=== PATIENT | female | born 1985 | race Caucasian/White ===

== ENCOUNTER 2020-09-16 11:10 | Inpatient (IN) ==
[2020-09-16 13:53] LABS: Basophils % 0.5 % (0.0-0.8); Eosinophils % 0.5 % (0.00-10.9); Hematocrit 41.7 VOL% (35.7-47.0); Hemoglobin 13.8 GM/DL (12.0-16.0); Immature Granulocytes % 0.7 %; Immature Granulocytes Absolute 0.04 #; Lymphocytes # 1.8 10*3/uL (1.4-4.0); Lymphocytes % 32.3 % (21.3-54.2); Mean Corpuscular HGB Conc 33.1 GM/DL (32-36); Mean Platelet Volume 10.1 FL (9.6-12.0); Monocytes % 10.3 % (1.7-12.7); Neutrophils % 55.7 % (38.7-73.9); Platelet Count 331 T/CUMM (130-400); Red Blood Count 5.21 MC/CUMM (3.8-5.5); Red Cell Distribution Width 13.1 % (9.3-17.3); White Blood Count 5.6 T/CUMM (4-12)
[2020-09-16 14:13] LABS: Bilirubin,Urine Negative (Negative); Blood, Urine Small mg/dL (Negative); Glucose,Urine (UA) Negative (Negative); Hyaline Casts,Urine 1 /LPF (0-3); Ketones,Urine 80 mg/dL (Negative); Mucus,Urine Occasional /LPF (Occasional); Nitrite,Urine Negative (Negative); Protein,Urine Negative; RBC,Urine 1 /HPF (0-4); Squamous Epithelial Cell,Urine Occasional /HPF (0-10); Urine Appearance Slightly Hazy (Clear); Urine Color Yellow (Yellow); Urine Specific Gravity 1.016 (1.001-1.035); Urine Urobilinogen < 2.0 EU/DL (0.2-1.0); WBC,Urine 3 /HPF (0-6)
[2020-09-16 14:30] LABS: Albumin 3.1 G/DL (3.4-5.0); Bilirubin,Total 0.6 MG/DL (0.2-1.0); Calcium 9.3 MG/DL (8.5-10.1); Osmolality,Calculated 269.1 MOS/KG (273-304); Potassium 3.7 MMOL/L (3.5-5.1); Total Protein 8.2 G/DL (6.4-8.3)
[2020-09-16 14:42] LABS: Eosinophils 1 % (0-10); Lymphocytes 31 % (20-55); Platelet Estimate Adequate; Segmented Neutrophils 57 % (50-85); Total Cells Counted 100
[2020-09-16] MEDS ORDERED: cefTRIAXone 1,000 MG in SODIUM CHLORIDE 0.9% 100 ML IV STA (16:50)
[2020-09-16] MEDS ORDERED: AZITHROMYCIN INJ 500 MG in SODIUM CHLORIDE 0.9% 250 ML IV STA (16:50)
[2020-09-16] MEDS ORDERED: METOCLOPRAMIDE 10 MG/2 ML VIAL IV STA (16:50)
[2020-09-16] MEDS ORDERED: ONDANSETRON 4 MG/2 ML VIAL IV ONE (16:59)
[2020-09-16] MEDS: SODIUM CHLORIDE 0.9% 1,000 ML IV SCH (21:55)
[2020-09-16] MEDS: FAMOTIDINE 20 MG TABLET PO SCH (22:05)
[2020-09-16] MEDS: DOCUSATE SODIUM 100 MG CAPSULE PO SCH (22:06)
[2020-09-17] MEDS: ONDANSETRON 4 MG/2 ML VIAL IV PRN ×2 (00:40→18:36)
[2020-09-17] MEDS: SODIUM CHLORIDE 0.9% 1,000 ML IV SCH ×3 (05:11→20:32)
[2020-09-17 05:45] LABS: Basophils % 0.7 % (0.0-0.8); Eosinophils # 0.1 10*3/uL (0.0-0.87); Eosinophils % 1.6 % (0.00-10.9); Hematocrit 36.9 VOL% (35.7-47.0); Hemoglobin 12.3 GM/DL (12.0-16.0); Immature Granulocytes % 1.1 %; Immature Granulocytes Absolute 0.05 #; Lymphocytes # 1.9 10*3/uL (1.4-4.0); Mean Corpuscular HGB Conc 33.3 GM/DL (32-36); Mean Corpuscular Volume 80.4 FL (87-102); Monocytes % 11.3 % (1.7-12.7); Neutrophils % 41.3 % (38.7-73.9); Platelet Count 305 T/CUMM (130-400); Red Blood Count 4.59 MC/CUMM (3.8-5.5); Red Cell Distribution Width 13.1 % (9.3-17.3); White Blood Count 4.4 T/CUMM (4-12)
[2020-09-17 06:03] LABS: Albumin 2.6 G/DL (3.4-5.0); Bilirubin,Total 0.5 MG/DL (0.2-1.0); Calcium 8.5 MG/DL (8.5-10.1); Osmolality,Calculated 275.5 MOS/KG (273-304); Potassium 3.3 MMOL/L (3.5-5.1); Total Protein 6.9 G/DL (6.4-8.3)
[2020-09-17 06:14] LABS: Eosinophils 5 % (0-10); Hypochromasia 1+; Lymphocytes 47 % (20-55); Microcytosis 1+; Platelet Estimate Adequate; Segmented Neutrophils 41 % (50-85); Total Cells Counted 100
[2020-09-17] MEDS: FAMOTIDINE 20 MG TABLET PO SCH ×2 (08:08→20:31)
[2020-09-17] MEDS: DOCUSATE SODIUM 100 MG CAPSULE PO SCH (08:09)
[2020-09-17] MEDS: POTASSIUM CHLORIDE 20 MEQ TABLET PO PRN ×3 (10:54→15:10)
[2020-09-17] MEDS: cefTRIAXone 1,000 MG in SYRINGE 1 EACH IV SCH (17:56)
[2020-09-18] MEDS: DOCUSATE SODIUM 100 MG CAPSULE PO SCH ×3 (00:23→22:26)
[2020-09-18] MEDS: ACETAMINOPHEN 325 MG TABLET PO PRN (05:00)
[2020-09-18] MEDS: SODIUM CHLORIDE 0.9% 1,000 ML IV SCH ×2 (05:00→11:40)
[2020-09-18] MEDS: FAMOTIDINE 20 MG TABLET PO SCH ×2 (08:02→20:57)
[2020-09-18] MEDS: ONDANSETRON 4 MG/2 ML VIAL IV PRN ×2 (11:41→17:49)
[2020-09-18] MEDS: VANCOMYCIN INJ 1,500 MG in SODIUM CHLORIDE 0.9% 500 ML IV SCH (16:07)
[2020-09-18] MEDS: cefTRIAXone 1,000 MG in SYRINGE 1 EACH IV SCH (17:16)
[2020-09-18] MEDS: ALBUTEROL 2.5 MG/3 ML NEB RESP TX PRN (21:15)
[2020-09-19] MEDS: ONDANSETRON 4 MG/2 ML VIAL IV PRN ×3 (00:26→17:11)
[2020-09-19] MEDS: SODIUM CHLORIDE 0.9% 1,000 ML IV SCH ×4 (02:30→20:35)
[2020-09-19] MEDS: ALBUTEROL 2.5 MG/3 ML NEB RESP TX PRN ×2 (04:10→13:30)
[2020-09-19] MEDS: VANCOMYCIN INJ 1,500 MG in SODIUM CHLORIDE 0.9% 500 ML IV SCH ×2 (04:20→14:55)
[2020-09-19] MEDS: FAMOTIDINE 20 MG TABLET PO SCH ×2 (09:06→20:35)
[2020-09-19] MEDS: DOCUSATE SODIUM 100 MG CAPSULE PO SCH ×2 (09:06→20:35)
[2020-09-19] MEDS: ACETAMINOPHEN 325 MG TABLET PO PRN (17:10)
[2020-09-19] MEDS ORDERED: FLUTICASONE 50 MCG NASAL SPRAY 16 GM BOTTLE BOTH NARES PRN (17:47)
[2020-09-19] MEDS: ONDANSETRON 4 MG/2 ML VIAL IV SCH (18:22)
[2020-09-19] MEDS: ALBUTEROL/IPRATROPIUM 3 ML NEB RESP TX SCH (19:18)
[2020-09-19] MEDS: MONTELUKAST 10 MG TABLET PO SCH (20:35)
[2020-09-19] MEDS: CITALOPRAM 40 MG TABLET PO SCH (20:35)
[2020-09-19] MEDS: SIMVASTATIN 10 MG TABLET PO SCH (20:35)
[2020-09-19] MEDS: cefTRIAXone 1,000 MG in SYRINGE 1 EACH IV SCH (20:36)
[2020-09-20] MEDS: ALBUTEROL/IPRATROPIUM 3 ML NEB RESP TX SCH ×4 (00:02→19:25)
[2020-09-20] MEDS: ONDANSETRON 4 MG/2 ML VIAL IV SCH ×4 (00:42→17:26)
[2020-09-20] MEDS: DOCUSATE SODIUM 100 MG CAPSULE PO SCH ×3 (00:51→21:00)
[2020-09-20] MEDS: VANCOMYCIN INJ 1,500 MG in SODIUM CHLORIDE 0.9% 500 ML IV SCH ×2 (03:40→15:53)
[2020-09-20] MEDS: methylPREDNISolone SOD SUC 40 MG/1 ML VIAL IV SCH ×2 (05:45→21:01)
[2020-09-20] MEDS: SODIUM CHLORIDE 0.9% 1,000 ML IV SCH ×2 (06:21→15:54)
[2020-09-20] MEDS: FAMOTIDINE 20 MG TABLET PO SCH ×2 (08:39→21:01)
[2020-09-20 11:06] LABS: Basophils % 0.4 % (0.0-0.8); Eosinophils % 0.7 % (0.00-10.9); Hematocrit 39.7 VOL% (35.7-47.0); Immature Granulocytes % 0.9 %; Immature Granulocytes Absolute 0.05 #; Lymphocytes # 0.8 10*3/uL (1.4-4.0); Lymphocytes % 15.2 % (21.3-54.2); Mean Corpuscular HGB Conc 32.7 GM/DL (32-36); Mean Corpuscular Volume 81.9 FL (87-102); Mean Platelet Volume 9.8 FL (9.6-12.0); Monocytes % 4.2 % (1.7-12.7); Neutrophils % 78.6 % (38.7-73.9); Platelet Count 353 T/CUMM (130-400); Red Blood Count 4.85 MC/CUMM (3.8-5.5); Red Cell Distribution Width 13.2 % (9.3-17.3); White Blood Count 5.5 T/CUMM (4-12)
[2020-09-20 11:24] LABS: Alanine Aminotransferase 36 U/L (13-56); Albumin 3.1 G/DL (3.4-5.0); Alkaline Phosphatase 50 U/L (45-117); Aspartate Amino Transferase 19 U/L (0-37); Bilirubin,Total < 0.39 MG/DL (0.2-1.0); Blood Urea Nitrogen 4 MG/DL (7-18); Calcium 9.1 MG/DL (8.5-10.1); Carbon Dioxide 26 MMOL/L (21-32); Estimated Glom Filtration Rate 87 ML/MIN; Glucose 121 MG/DL (74-106); Osmolality,Calculated 276.4 MOS/KG (273-304); Potassium 4.3 MMOL/L (3.5-5.1); Sodium 140 MMOL/L (136-145); Total Protein 7.3 G/DL (6.4-8.3)
[2020-09-20] MEDS: cefTRIAXone 1,000 MG in SYRINGE 1 EACH IV SCH (21:00)
[2020-09-20] MEDS: SIMVASTATIN 10 MG TABLET PO SCH (21:01)
[2020-09-20] MEDS: CITALOPRAM 40 MG TABLET PO SCH (21:01)
[2020-09-20] MEDS: MONTELUKAST 10 MG TABLET PO SCH (21:01)
[2020-09-20] MEDS: ACETAMINOPHEN 325 MG TABLET PO PRN (21:10)
[2020-09-21] MEDS: ALBUTEROL/IPRATROPIUM 3 ML NEB RESP TX SCH ×4 (00:04→19:42)
[2020-09-21] MEDS: ONDANSETRON 4 MG/2 ML VIAL IV SCH ×4 (00:39→17:18)
[2020-09-21] MEDS: VANCOMYCIN INJ 1,500 MG in SODIUM CHLORIDE 0.9% 500 ML IV SCH ×2 (03:05→15:59)
[2020-09-21] MEDS: methylPREDNISolone SOD SUC 40 MG/1 ML VIAL IV SCH ×2 (08:57→22:35)
[2020-09-21] MEDS: FAMOTIDINE 20 MG TABLET PO SCH ×2 (08:57→22:44)
[2020-09-21] MEDS: DOCUSATE SODIUM 100 MG CAPSULE PO SCH ×2 (08:59→22:44)
[2020-09-21] MEDS: SODIUM CHLORIDE 0.9% 1,000 ML IV SCH ×3 (11:31→21:30)
[2020-09-21] MEDS: MONTELUKAST 10 MG TABLET PO SCH (22:33)
[2020-09-21] MEDS: SIMVASTATIN 10 MG TABLET PO SCH (22:34)
[2020-09-21] MEDS: CITALOPRAM 40 MG TABLET PO SCH (22:34)
[2020-09-21] MEDS: cefTRIAXone 1,000 MG in SYRINGE 1 EACH IV SCH (22:37)
[2020-09-22] MEDS: ONDANSETRON 4 MG/2 ML VIAL IV SCH ×4 (00:43→18:07)
[2020-09-22] MEDS: ALBUTEROL/IPRATROPIUM 3 ML NEB RESP TX SCH ×3 (01:55→13:27)
[2020-09-22] MEDS: VANCOMYCIN INJ 1,500 MG in SODIUM CHLORIDE 0.9% 500 ML IV SCH ×2 (02:28→15:18)
[2020-09-22] MEDS: SODIUM CHLORIDE 0.9% 1,000 ML IV SCH ×2 (05:45→17:45)
[2020-09-22 06:28] LABS: Basophils % 0.6 % (0.0-0.8); Eosinophils % 0.2 % (0.00-10.9); Hematocrit 36.5 VOL% (35.7-47.0); Hemoglobin 11.8 GM/DL (12.0-16.0); Immature Granulocytes % 0.3 %; Immature Granulocytes Absolute 0.02 #; Lymphocytes # 1.1 10*3/uL (1.4-4.0); Lymphocytes % 17.8 % (21.3-54.2); Mean Corpuscular HGB Conc 32.3 GM/DL (32-36); Mean Corpuscular Volume 83.7 FL (87-102); Mean Platelet Volume 10.5 FL (9.6-12.0); Monocytes % 5.3 % (1.7-12.7); Neutrophils % 75.8 % (38.7-73.9); Platelet Count 335 T/CUMM (130-400); Red Blood Count 4.36 MC/CUMM (3.8-5.5); Red Cell Distribution Width 13.4 % (9.3-17.3); White Blood Count 6.4 T/CUMM (4-12)
[2020-09-22 07:08] LABS: Alanine Aminotransferase 32 U/L (13-56); Alkaline Phosphatase 47 U/L (45-117); Aspartate Amino Transferase 15 U/L (0-37); Bilirubin,Total < 0.39 MG/DL (0.2-1.0); Blood Urea Nitrogen 7 MG/DL (7-18); Calcium 8.6 MG/DL (8.5-10.1); Carbon Dioxide 24 MMOL/L (21-32); Estimated Glom Filtration Rate 106 ML/MIN; Glucose 107 MG/DL (74-106); Osmolality,Calculated 278.3 MOS/KG (273-304); Potassium 4.2 MMOL/L (3.5-5.1); Sodium 141 MMOL/L (136-145); Total Protein 6.7 G/DL (6.4-8.3)
[2020-09-22] MEDS: FAMOTIDINE 20 MG TABLET PO SCH (08:39)
[2020-09-22] MEDS: methylPREDNISolone SOD SUC 40 MG/1 ML VIAL IV SCH (08:40)
[2020-09-22] MEDS: DOCUSATE SODIUM 100 MG CAPSULE PO SCH (08:42)
[2020-09-22 16:43] VITALS: BP 117/72
== END 2020-09-22 18:21 | disposition home or self-care (01) | DRG 194 ==
LOC: N.ED 11:10 → N.EDINP 19:24 → N.5E 21:48
PROVIDERS: ADMIT Internal Medicine; ATTEND Internal Medicine